=== PATIENT | male | born 1935 | race Caucasian/White ===

== ENCOUNTER 2016-08-09 06:53 | Day surgery (SDC) | payer BC ==
[~2016-08-09 06:53] MED LIST: CRESTOR40 MG PO; CYANO1000T PO; LEVOTHYROXIN88 MCG PO; P1 PO; TRAVATAN Z EYE OPH; TRUSOPT2 % OPH; VITAMIN D400 UNI1 PO; [UNRECOGNIZED DRUG - CODE]
[2016-08-09 07:43] LABS: BASOPHILS 0.2 %; BASOPHILS ABSOLUTE 0.01 10/3/uL (0.0-0.16); EOSINOPHILS 3.3 %; EOSINOPHILS ABSOLUTE 0.18 10/3/uL (0.0-0.53); HEMATOCRIT 35.9 % (40.0-51.0); MEAN CORPUS HGB CONC 33.4 g/dL (32.0-36.0); MEAN CORPUSCULAR HEMOGLOB 29.7 pg (26.0-34.0); MEAN CORPUSCULAR VOLUME 88.9 fL (80-100); MONOCYTES 12.2 %; MONOCYTES ABSOLUTE 0.67 10/3/uL (0.21-1.20); NEUTROPHILS 53.3 %; NEUTROPHILS ABSOLUTE 2.92 10/3/uL (2.02-8.40); PLATELET COUNT 195 10/3/uL (150-400); RBC DISTRIBUTION WIDTH 16.6 % (12.0-16.0); RED CELL COUNT 4.04 10/6/uL (4.7-6.1); RETICULOCYTE COUNT 1.4 % (0.5-2.5); WHITE BLOOD CELLS 5.5 10/3/uL (4.5-10.5)
[2016-08-09 07:44] LABS: MANUAL DIFF NO %
== END 2016-08-09 11:01 | disposition home or self-care (01) ==
LOC: SDC 06:53
PROVIDERS: Pathology Cytopathology
PROC: 07DR3ZX Extraction of Iliac Bone Marrow, Percutaneous Approach, Diagnostic (ICD-10-PCS; principal; 2016-08-09 10:00)
DX: D47.2 Monoclonal gammopathy (principal); D64.89 Other specified anemias; E78.00 Pure hypercholesterolemia, unspecified; M35.3 Polymyalgia rheumatica; I25.10 Atherosclerotic heart disease of native coronary artery without angina pectoris; N28.9 Disorder of kidney and ureter, unspecified; I10 Essential (primary) hypertension
CPT/HCPCS: 85025; 85045; 88305; 88311; 88313; 88342; 88367